=== PATIENT | female | born 1950 | race Two or more races ===

== ENCOUNTER 2018-10-17 09:48 | Outpatient (CLI) | payer MEDICARE, OTHER ==
[2018-10-17 10:34] LABS: CALCIUM, SERUM 9.1 mg/dL (8.5-10.1); CREATININE 0.6 mg/dL (0.6-1.3); POTASSIUM 4.2 mmol/L (3.5-5.1)
[2018-10-17] MEDS ORDERED: IOHEXOL-350 100 ML VIAL IV ONE (11:12)
[2018-10-17] MEDS ORDERED: IV NS 0.9% 250 ML IV ONE (11:12)
[2018-10-17] MEDS ORDERED: CT SWABBABLE VALVE TRANS SET 1 EA INFUS.SET MC ONE (11:12)
== END 2018-10-17 23:59 | disposition home or self-care (01) ==
LOC: CT 09:48
PROVIDERS: ATTEND Internal Medicine Interventional Cardiology
DX: I65.29 Occlusion and stenosis of unspecified carotid artery (principal); Z87.891 Personal history of nicotine dependence; I10 Essential (primary) hypertension; E78.5 Hyperlipidemia, unspecified; Z79.899 Other long term (current) drug therapy
CPT/HCPCS: 36415; 70498; 80048; J7050; Q9967